=== PATIENT | female | born 1995 | race Caucasian/White ===

== ENCOUNTER 2018-09-06 16:55 | Emergency (ER) | payer MEDICAID ==
[~2018-09-06] VITALS: Ht 170.2 cm; Wt 52.2 kg
[2018-09-06 17:14] VITALS: BP 139/81
--- NOTE | 2018-09-06 20:08 | NUR ---
Patient ambulated to bed 3. RN evaluating patient at bedside.
--- NOTE | 2018-09-06 20:15 | NUR ---
PT BIB SELF C/O H/A X1 WEEK. PT STATES SHE FEELS A KNOT ON THE BACK OF HER HEAD, INTERMITTENT 8/10 H/A PAIN, NON RADIATING. PT STATES THAT WHEN SHE HAS THE HEADACHE SHE SHES LINE/BLURRIED VISION WHEN SHE BLINKS. DENIES TRAUMA OR LOC. CLEAR SPEECH, AAOX4. PT ACTING APPROPRIATLY. PT STATES SHE MIGHT BE UNDER SOME STRESS LATELTY, SMOKED WEED DAILY. PMH: SHU
--- NOTE | 2018-09-06 20:18 | NUR ---
Dr. Smart evaluating patient at bedside.
[2018-09-06] MEDS ORDERED: IBUPROFEN 800 MG TAB PO ONE (20:30)
--- NOTE | 2018-09-06 21:25 | NUR ---
PT TO CT VIA WHEELCHAIR BY TECH.
--- NOTE | 2018-09-06 21:36 | NUR ---
PT BACK FROM CT, PT IN BED. SAFETY PRECAUTIONS IN PLACE.
[2018-09-06 22:17] VITALS: BP 135/72
== END 2018-09-06 22:17 | disposition home or self-care (01) ==
LOC: MED 16:55
DX: N63.21 Unspecified lump in the left breast, upper outer quadrant (principal); R51 Headache; R11.0 Nausea; F12.10 Cannabis abuse, uncomplicated
CPT/HCPCS: 70450; 81002; 81025; 99284